=== PATIENT | male | born 1950 | race Caucasian/White ===

== ENCOUNTER → 2018-09-29 | Day surgery (SDC) | payer MEDICARE, OTHER ==
[~2018-09-29] VITALS: Ht 177.8 cm; Wt 106.5 kg
[~2018-09-29] MED LIST: ASPI81TA85 PO; D32000CA PO; ESZO1TAB6 PO; FISH1000 PO; GARL3CAP4 PO; GRAP50CA3 PO; LIDOCAINE 2% INJ 100 MG/5 ML SDV (FOR ANES.) As Ordered ONE; MAGN100T PO; MELO15TA28 PO; MINO100C4 PO; MULTCAP PO; NS 1,000 ML IV ONE; OMEP20CA3 PO; PROPOFOL 200 MG/20 ML VIAL As Ordered ONE; RA T500C2 PO; iron PO
--- NOTE | 2018-09-29 09:35 | ROOR ---
Patient Name: Landen Smart Procedure Date: 09/29/2018 9:21 AM Date of : 1950 Age: 67 Room: [facility] Gender: Male Note Status: Finalized Procedure: Total Colonoscopy to Cecum Indications: High risk colon cancer surveillance: Personal history of colonic polyps, Last colonoscopy: 2013 Providers: Trever Burton MD Referring MD: Rafita Nieves Np Requesting Provider: Medicines: Monitored Anesthesia Care Complications: No immediate complications. Procedure: Pre-Anesthesia Assessment: - The heart rate, respiratory rate, oxygen saturations, blood pressure, adequacy of pulmonary ventilation, and response to care were monitored throughout the procedure. The Colonoscope was introduced through the anus and advanced to the cecum, identified by appendiceal orifice and ileocecal valve. The colonoscopy was performed without difficulty. The patient tolerated the procedure well. The quality of the bowel preparation was good. Findings: The perianal and digital rectal examinations were normal. Non-bleeding internal hemorrhoids were found during retroflexion. The hemorrhoids were small and Grade I (internal hemorrhoids that do not prolapse). Scattered small-mouthed diverticula were found in the entire colon. The exam was otherwise without abnormality on direct and retroflexion views. Impression: - Non-bleeding internal hemorrhoids. - Diverticulosis in the entire examined colon. - The examination was otherwise normal on direct and retroflexion views. - No specimens collected. - The exam was otherwise normal to the cecum. Recommendation: - Patient has a contact number available for emergencies. The signs and symptoms of potential delayed complications were discussed with the patient. Return to normal activities tomorrow. Written discharge instructions were provided to the patient. - Discharge patient to home. - Continue present medications. - Repeat colonoscopy in 5 years for surveillance. - Return to referring physician. - The findings and recommendations were discussed with the patient's family. Trever Burton MD Trever Burton MD 09/29/2018 9:35:36 AM Electronically signed by Trever Burton MD Number of Addenda: 0 Note Initiated On: 09/29/2018 9:21 AM Estimated Blood Loss: Estimated blood loss: none.
[2018-09-29 10:00] VITALS: BP 178/98
== END | disposition home or self-care (01) ==
LOC: M OPP 08:30
PROVIDERS: ATTEND Internal Medicine Gastroenterology
DX: K64.0 First degree hemorrhoids (principal); K57.30 Diverticulosis of large intestine without perforation or abscess without bleeding; Z86.010 Personal history of colon polyps

== ENCOUNTER 2024-02-19 09:13 | Day surgery (SDC) | payer MEDICARE, OTHER ==
[~2024-02-19] VITALS: Ht 180.3 cm; Wt 88.9 kg
[~2024-02-19 09:13] MED LIST changes: +ALPH600C PO; -ASPI81TA85 PO; +ASPI81TA86 PO; +ECOT81TA5 PO; +GARL500C6 PO; +IRON27TA2 PO; -LIDOCAINE 2% INJ 100 MG/5 ML SDV (FOR ANES.) As Ordered ONE; +MINO50CA3 PO; +MULT-90 PO; -NS 1,000 ML IV ONE; +NS 250 ML IV ONE; +OMEG10002 PO; +OMEP1CAP73 PO; -OMEP20CA3 PO; -PROPOFOL 200 MG/20 ML VIAL As Ordered ONE; +RA M10TA PO; +VITA100093 PO; +ZZZQ50LI PO
[2024-02-19] MEDS ORDERED: LIDOCAINE 2% 100MG/5ML SDV (FOR ANES.) As Ordered ONE (10:31)
[2024-02-19] MEDS ORDERED: propofoL 200 MG/20 ML VIAL As Ordered ONE (10:31)
[2024-02-19 11:12] VITALS: TEMP 97.2
[2024-02-19 11:40] VITALS: BP 131/66; O2SAT 99
== END 2024-02-19 11:42 | disposition home or self-care (01) ==
LOC: M OPP 09:13
PROVIDERS: ATTEND Internal Medicine Gastroenterology
DX: Z12.11 Encounter for screening for malignant neoplasm of colon (principal); K63.5 Polyp of colon; K64.8 Other hemorrhoids; K57.30 Diverticulosis of large intestine without perforation or abscess without bleeding; Z86.0100 Personal history of colon polyps, unspecified; Z87.19 Personal history of other diseases of the digestive system; G47.30 Sleep apnea, unspecified; Z79.899 Other long term (current) drug therapy; Z79.82 Long term (current) use of aspirin; Z79.1 Long term (current) use of non-steroidal anti-inflammatories (NSAID)

== ENCOUNTER 2024-04-15 11:24 | Day surgery (SDC) | payer MEDICARE, OTHER ==
[~2024-04-15] VITALS: Ht 180.3 cm; Wt 94.2 kg
[~2024-04-15 11:24] MED LIST changes: +LIDOCAINE 2% 100MG/5ML SDV (FOR ANES.) As Ordered ONE; -NS 250 ML IV ONE; +OMAC1CA PO; +OMEP40CA5 PO; +propofoL 200 MG/20 ML VIAL As Ordered ONE
[2024-04-15] MEDS ORDERED: fentaNYL 100 MCG/2 ML INJECTION As Ordered ONE (14:36)
[2024-04-15 15:03] VITALS: TEMP 98.1
[2024-04-15 15:17] VITALS: BP 112/84; O2SAT 96
== END 2024-04-15 15:24 | disposition home or self-care (01) ==
LOC: M OPP 11:24
PROVIDERS: ATTEND Internal Medicine Gastroenterology
DX: R13.10 Dysphagia, unspecified (principal); K29.50 Unspecified chronic gastritis without bleeding; R12 Heartburn; Z86.0100 Personal history of colon polyps, unspecified; Z87.19 Personal history of other diseases of the digestive system; G47.30 Sleep apnea, unspecified; Z79.899 Other long term (current) drug therapy; Z79.82 Long term (current) use of aspirin; Z79.1 Long term (current) use of non-steroidal anti-inflammatories (NSAID); Z87.891 Personal history of nicotine dependence
CPT/HCPCS: 43239; 43249; 88305; J3010